=== PATIENT | male | born 1945 | race Asian ===

== ENCOUNTER 2016-10-31 23:52 | Emergency (ER) | payer OTHER ==
[~2016-10-31] VITALS: Ht 162.6 cm; Wt 80.0 kg
[2016-10-31 23:53] VITALS: BP 190/85; PULSE 84; RESP 16; TEMP 98.1; O2SAT 98
[2016-11-01] MEDS ORDERED: ASPI81CH37 CHEW (00:27)
[2016-11-01] MEDS ORDERED: SIMV20TA PO (00:27)
[2016-11-01] MEDS ORDERED: AZOR5TAB2 PO (00:27)
[2016-11-01] MEDS ORDERED: METF500T PO (00:28)
[2016-11-01] MEDS ORDERED: GLIM1TAB PO (00:28)
--- NOTE | 2016-11-01 01:01 | RADRPT ---
EXAM DATE/TIME: 11/01/2016 00:40 [place] COMPARISON: No previous studies available for comparison. INDICATIONS : Cephalgia with nose bleed. RADIATION DOSE: 33.89 CTDIvol (mGy) MEDICAL HISTORY : Hypertension. Diabetes mellitus type 2. SURGICAL HISTORY : None. ENCOUNTER: Initial ACUITY: 3 days PAIN SCALE: 3/10 LOCATION: cranial TECHNIQUE: Multiple contiguous axial images were obtained of the head. Using automated exposure control and adj ustment of the mA and/or kV according to patient size, radiation dose was kept as low as reasonably a chievable to obtain optimal diagnostic quality images. FINDINGS: CEREBRUM: The ventricles are normal for age. No evidence of midline shift, mass lesion, hemorrhage or acute in farction. No extra-axial fluid collections are seen. POSTERIOR FOSSA: The cerebellum and brainstem are intact. The 4th ventricle is midline. The cerebellopontine angle i s unremarkable. EXTRACRANIAL: The visualized portion of the orbits is intact. Mucosal thickening is seen involving scattered middle and anterior ethmoid air cells on the right. Remaining paranasal sinuses and mastoid air cells are c lear. SKULL: The calvaria is intact. No evidence of skull fracture. CONCLUSION: 1. No acute intracranial abnormality. 2. Chronic right ethmoid sinus disease. Arturo Jimenez Jr., MD on November 01, 2016 at 0:58 Board Certified Radiologist. This report was verified electronically.
[2016-11-01 01:05] LABS: AUTOMATED NEUTROPHIL # 4.6 TH/MM3 (1.8-7.7); BASOPHIL # 0.1 TH/MM3 (0-0.2); BASOPHIL % 0.9 % (0.0-2.0); EOSINOPHIL # 0.4 TH/MM3 (0-0.4); EOSINOPHIL % 4.6 % (0.0-4.0); HEMO FLAGS DIFF FINAL; LYMPH % 34.4 % (9.0-44.0); LYMPHOCYTE # 3.2 TH/MM3 (1.0-4.8); MEAN CELL VOLUME 86.8 FL (80.0-100.0); MEAN CORPUSCULAR HEMOGLOBIN 30.1 PG (27.0-34.0); MEAN CORPUSCULAR HGB CONC 34.7 % (32.0-36.0); MONO % 11.1 % (0.0-8.0); PLATELET COUNT 250 TH/MM3 (150-450); RED BLOOD COUNT 4.14 MIL/MM3 (4.50-5.90); RED CELL DISTRIBUTION WIDTH 12.7 % (11.6-17.2); WHITE BLOOD COUNT 9.3 TH/MM3 (4.0-11.0)
[2016-11-01 01:20] LABS: APTT (PATIENT) 29.2 SEC (24.3-30.1); BICARBONATE 27.9 MEQ/L (21.0-32.0); INTERNATIONAL NORMALIZED RATIO 0.9 RATIO; PROTHROMBIN TIME - PATIENT 10.4 SEC (9.8-11.6)
--- NOTE | 2016-11-01 01:39 | PD ---
HPI Chief Complaint: Bleeding Time Seen by Provider: 00:12 Travel History International Travel<30 days: No Contact w/Intl Traveler<30days: No Traveled to known affect area: No History of Present Illness HPI The patient is 71 year old male who presents to the [facility] emergency department with a history of nosebleed that began on evening. The patient reports that he recently returned back from [place]. He reports that he drove from [place]. He reports that it was cold and that area and heat was on in multiple locations. He reports that the bleeding has been occurring from the right nare. He denies having problems with nose bleeds previously. He reports that he has had a frontal headache. He reports that he has had some nasal congestion and postnasal drip. The patient reports that he takes a baby aspirin on a daily basis for prevention. The patient denies any history of fever , neck pain, chest pain, shortness of breath, abdominal pain, vomiting, diarrhea , urinary symptoms, or other neurologic symptoms. PFS Past Medical History Narrative Medical The patient's past medical history is significant for diabetes mellitus, hypertension. High Cholesterol: Yes Diabetes: Yes Patient Takes Glucophage: Yes Hypertension: Yes Tetanus Vaccination: Unknown Past Surgical History Narrative Surgical The patient's past surgical history is reportedly none. Surgical History: No Previous Surgery Social History Alcohol Use: No Tobacco Use: No Substance Use: No Allergies-Medications (Allergen,Severity, Reaction): Coded Allergies: No Known Allergies (Unverified , 11/01/16) Reported Meds & Prescriptions Reported Meds & Active Scripts Active Augmentin (Amoxicillin-Clavulanate) 875-125 mg Tab 875 Mg PO BID not for use in CrCl <30 ml/min. Reported Glimepiride 1 Mg Tab 1 Mg PO DAILY Take with breakfast or first main meal Metformin (Metformin HCl) 500 Mg Tab 500 Mg PO BIDPC With meals Denys (Amlodipine-Olmesartan) 5-20 Mg Tab 1 Tab PO DAILY Aspirin Low Dose (Aspirin) 81 Mg Chew 81 Mg CHEW DAILY Simvastatin 20 Mg Tab 20 Mg PO DAILY Review of Systems Except as stated in HPI: all other systems reviewed are Neg General / Constitutional: No: Fever Eyes: No: Visual changes HENT: Positive: Headaches, Congestion, Nosebleed, No: Neck Stiffness, Neck Pain Cardiovascular: No: Chest Pain or Discomfort Respiratory: No: Shortness of Breath Gastrointestinal: No: Abdominal Pain Genitourinary: No: Dysuria Musculoskeletal: No: Pain Skin: No Rash Neurologic: Positive: Headache (frontal sinus headache), No: Weakness, Focal Abnormalities, Change in Mentation, Slurred Speech, Sensory Disturbance Psychiatric: No: Depression Endocrine: No: Polydipsia Hematologic/Lymphatic: No: Easy Bruising Physical Exam Narrative General: The patient is a well-developed well-nourished male in no acute distress. Head and Neck exam: Head is normocephalic atraumatic. Eyes: EOMI, pupils are equal round and reactive to light. Nose: Midline septum with erythematous edematous nasal mucosa and a clear nasal discharge. The right nare has a clot present in the posterior naris. No active bleeding is noted. No septal hematoma. Mouth: Dentition unremarkable. Moist mucus membranes. Posterior oropharynx is not erythematous. No tonsillar hypertrophy. Uvula midline. Airway patent. Neck: No palpable lymphadenopathy. No nuchal rigidity. No thyromegaly. Cardiovascular: Regular rate and rhythm without murmurs, gallops, or rubs. No pulse deficit to the extremities. Lungs: Clear to auscultation bilaterally. No wheezes, rhonchi, or rales. Abdomen: Soft, without tenderness to palpation in all 4 quadrants of the abdomen. No guarding, rebound, or rigidity. Negative [place] sign. Extremities: No clubbing, cyanosis, or edema. 2+ pulses in all 4 extremities. Back: No spinous process tenderness to palpation. No costovertebral angle tenderness to palpation. Neurologic Exam: Cranial nerves 2-12 were intact on exam. Strength is 5/5 in all 4 extremities. No sensory deficits noted. No dysdiadochokinesis. Good finger to nose and Heel to rodgers bilaterally. Skin Exam: No rash noted. Intact skin that is warm and dry. Data Data Last Documented VS Vital Signs Date Time Temp Pulse Resp B/P Pulse Ox O2 Delivery O2 Flow Rate FiO2 10/31/16 23:53 98.1 84 16 190/85 98 Room Air Orders Complete Blood Count With Diff (11/01/16 00:29) Basic Metabolic Panel (Bmp) (11/01/16 00:29) Prothrombin Time / Inr (Pt) (11/01/16 00:29) Act Partial Throm Time (Ptt) (11/01/16 00:29) Ct Brain W/O Iv Contrast(Rout) (11/01/16 00:29) Iv Access Insert/Monitor (11/01/16 00:29) Ecg Monitoring (11/01/16 00:29) Oximetry (11/01/16 00:29) Labs Laboratory Tests Test 11/01/16 00:50 White Blood Count 9.3 TH/MM3 Red Blood Count 4.14 MIL/MM3 Hemoglobin 12.5 GM/DL Hematocrit 36.0 % Mean Corpuscular Volume 86.8 FL Mean Corpuscular Hemoglobin 30.1 PG Mean Corpuscular Hemoglobin 34.7 % Concent Red Cell Distribution Width 12.7 % Platelet Count 250 TH/MM3 Mean Platelet Volume 8.5 FL Neutrophils (%) (Auto) 49.0 % Lymphocytes (%) (Auto) 34.4 % Monocytes (%) (Auto) 11.1 % Eosinophils (%) (Auto) 4.6 % Basophils (%) (Auto) 0.9 % Neutrophils # (Auto) 4.6 TH/MM3 Lymphocytes # (Auto) 3.2 TH/MM3 Monocytes # (Auto) 1.0 TH/MM3 Eosinophils # (Auto) 0.4 TH/MM3 Basophils # (Auto) 0.1 TH/MM3 CBC Comment DIFF FINAL Differential Comment Prothrombin Time 10.4 SEC Prothromb Time International 0.9 RATIO Ratio Activated Partial 29.2 SEC Thromboplast Time Sodium Level 135 MEQ/L Potassium Level 4.0 MEQ/L Chloride Level 101 MEQ/L Carbon Dioxide Level 27.9 MEQ/L Anion Gap 6 MEQ/L Blood Urea Nitrogen 11 MG/DL Creatinine 1.06 MG/DL Estimat Glomerular Filtration 68 ML/MIN Rate Random Glucose 80 MG/DL Calcium Level 8.9 MG/DL [facility] Medical Decision Making Medical Screen Exam Complete: Yes Emergency Medical Condition: Yes Interpretation(s) Last Impressions Head CT 11/01/16 0029 Signed Impressions: Service Date/Time: Tuesday, November 01, 2016 00:40 - CONCLUSION: 1. No acute intracranial abnormality. 2. Chronic right ethmoid sinus disease. Arturo Jimenez Jr., MD Differential Diagnosis Coagulopathy, versus hypertension induced epistaxis, versus sinus inflammation induced epistaxis, versus dryness induced epistaxis Narrative Course During the course of the patients emergency department visit, the patients history, examination, and differential diagnosis were reviewed with the patient. The patient had IV access obtained and blood work sent for analysis. The patient was placed on a wash house worker with oximetry and blood pressure monitoring. The patient's initial blood pressure in triage was elevated, however after reexamination it had return back to normal, his baseline. The patients laboratory studies were reviewed and remarkable for a white count of 9.3, hemoglobin 12.5, platelets 250, monocytosis at 11.1. BMP is remarkable for sodium of 135, GFR 68, PT PTT within normal limits Radiology studies were reviewed and remarkable for a CT scan of the brain shows no acute intracranial abnormality, however the patient does have a chronic right ethmoid sinusitis. I suspect that the patient's epistaxis is related to a combination of factors including sinusitis and recent dry air exposure from heater used during travel to cold areas. The patient was instructed regarding how to properly care for a nosebleed. The patient will be given a prescription for Augmentin. He was instructed to follow up with an teacher of the deaf/hard of hearing. . The patient is resting comfortably and feels better, is alert and in no distress. The patients results and examination findings were discussed with the patient. The repeat examination is unremarkable and benign. The history, exam, diagnostic testing, and current condition do not suggest any significant pathology to warrant further testing, continued ED treatment, admission, or surgical evaluation at this point. The vital signs have been stable. The patient does not have uncontrollable pain, intractable vomiting, or other significant symptoms. The patient's condition is stable and appropriate for discharge. The patient will pursue further outpatient evaluation with a primary care physician or other designated or consulting physician as indicated in the discharge instructions. The patient expressed understanding and was agreeable with this plan. Diagnosis Primary Impression: Acute sinusitis Qualified Code: J01.20 - Acute ethmoidal sinusitis, recurrence not specified Additional Impression: Epistaxis Referrals: Fco Mendoza MD 3 days Additional Instructions: Hold aspirin for 1 week. Med/Other Pt SpecificInfo: Prescription(s) given Scripts Amoxicillin-Clavulanate (Augmentin)875-125 mg [id number] Mg PO BID #20 TAB Ref 0 not for use in CrCl <30 ml/min. Prov:Luanne Paredes MD 11/01/16 Disposition: 01 DISCHARGE HOME Condition: Stable Luanne Paredes MD Nov 01, 2016 01:39
[2016-11-01] MEDS ORDERED: AUGM875T PO (02:33)
== END 2016-11-01 03:13 | disposition home or self-care (01) ==
LOC: NEPE 23:52
DX: J01.20 Acute ethmoidal sinusitis, unspecified (principal); I10 Essential (primary) hypertension; E11.9 Type 2 diabetes mellitus without complications; E78.00 Pure hypercholesterolemia, unspecified; Z79.4 Long term (current) use of insulin
CPT/HCPCS: 70450; 80048; 85025; 85610; 85730